=== PATIENT | male | born 1975 | race Caucasian/White ===

== ENCOUNTER 2024-07-09 15:32 | Emergency (ER) | payer BC, SELFPAY ==
[2024-07-09] VITALS (24 sets, daily range): BP systolic 126–163; BP diastolic 91–127; PULSE 53–96; RESP 16; TEMP 37; O2SAT 95–98; BMI 34.0
--- OUTSIDE RECORDS SUMMARY | 2024-07-09 15:34 | XMS_ITS | Clinical Summary ---
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 Name Role Phone Pcp, No Primary Care Provider Unavailabl e Allergies No known active allergies Medications polyethylene glycol-electroly te (GOLYTELY) 236-22.74-6.74 -5.86 gram suspensionIndica tions:Encounter for screening colonoscopy Drink 2 liters the day before the procedure and 2 liters 6 hours prior to procedure 4000 mL 3 Active CPAPIndications: LAVERNE (obstructive sleep apnea) CPAP machine for home use at pressure 5-16 cmw, full face mask x1/3month with a full face cushion x1/mo 1 Each 11 4 Active Active Problems Problem Noted Date Diagnosed Date Colon polyp 03/13/2023 Overview (03/13/2023): Colonoscopy 02/2023 2-TA, repeat in 7 years Obesity (BMI 35.0-39.9 without comorbidity) 09/2022 LAVERNE 05/22/2010 AHI-33, positional 05/27/2010 Myopia 06/19/2006 Resolved Problems Problem Noted Date Diagnosed Date Resolved Date Obesity, Class II, BMI 35-39 .9, with comorbidity 04/18/2014 05/16/2022 Immunizations Immunization Administration Dates Next Due Tdap 03/28/2022,09/09/2011 Family History Medical History Relation Name Comments Rheum arthritis Brother Cancer Father Small cell lung carcinoma Diabetes Father Stroke Maternal Uncle Diabetes Mother Heart Disease Mother Hypertension Mother Cancer-colon Paternal Grandfather Rheum arthritis Sister Relation Name Status Comments Brother Father Maternal Uncle Mother Paternal Grandfather Sister Social History Tobacco Use Types Packs/Day Years Used Date Smoking Tobacco: Former Smokeless Tobacco: Former Chew Quit: 11/10/2016 Tobacco Cessation:Counseling Given: Not Answered Comments:Quit using all tobacco products 5 years ago Alcohol Use Standard Drinks/Week Comments Never 0 (1 standard drink = 0.6 oz pur e alcohol) PHQ-2 Answer Date Recorded PHQ-2 TOTAL SCORE 0 03/28/2022 Social Connections Answer Date Recorded Frequency of Communication with Friends and Fami ly Not on file 04/03/2023 Financial Resource Strain Answer Date R ecorded Difficulty of Paying Living Expenses 3 03/28/2022 Difficulty of Paying Living Expenses Not on file 03/28/2022 Food Insecurity Answer Date Recorded Worried About Running Out of Food in the Last Ye ar 1 03/28/2022 Transportation Needs Answer Date Record ed Lack of Transportation (Medical) 1 03/28/2022 Housing Stability Answer Date Recorded Unable to Pay for Housing in the Last Year 1 03/28/2022 Sex and Gender Information Value Date Recorded Sex Assigned at Not on file Legal Sex Male 5:16 AM ADOPTION COUNSELOR Gender Identity Not on file Sexual Orientation Not on file Obstetrics History Last Filed Vital Signs Vital Sign Reading Time Taken Comments Blood Pressure 128/83 08/20/2023 3:03 PM CDT Pulse 71 08/20/2023 3:03 PM CDT Temperature 36.7 C (98.1 F) 09/15/2020 5:34 PM CDT Respiratory Rate 16 02/28/2023 12:33 PM ADOPTION COUNSELOR Oxygen Saturation 94% 08/20/2023 3:03 PM CDT Inhaled Oxygen Concentration - - Weight 109.8 kg (242 lb) 08/20/2023 3:03 PM CDT Height 174.5 cm (5' 8.7) 08/20/2023 3:03 PM CDT Body Mass Index 36.05 08/20/2023 3:03 PM CDT Plan of Treatment Health Maintenance Due Date Last Done Comments Depression screening for age 12+ 03/28/2023 03/28/2022, 07/25/2016, 06/09/2016 COVID-19 vaccine series () 11/11/2023 BMI (ht and wt on same day) for age 18+ 08/19/2024 08/20/2023, 05/16/2022, 03/28/2022, Additional history exists Influenza Vaccine (Season Ended) 2024 Lipids for age 45-75 03/28/2027 03/28/2022 Colonoscopy through age 75 02/28/203002/28, 02/28/2023, 02/28/2023 Tetanus booster 03/28/2032 03/28/2022, 09/09/2011 HIV for age 15-65 Completed 03/28/2022 Hepatitis C screening for age 18-79 Completed 03/28/2022 Tdap Completed 03/28/2022, 09/09/2011 Pneumococcal series for age 6-49 Aged Out No longer eligible based on patient's age to complete this topic Procedures Procedure Name Priority Date/Time Associated Diagnosis Comments COLONOSCOPY SCREENING Routine 02/28/2023 10:28 AM ADOPTION COUNSELOR Screening for colon cancer LC HIV-1/O/2, 4TH GENERATION Routine 03/28/2022 5:16 PM ADOPTION COUNSELOR Encounter for screening for human immunodeficiency virus (HIV) LC HCV ANTIBODY RFX TO QUANT PCR Routine 03/28/2022 5:16 PM ADOPTION COUNSELOR Encounter for hepatitis C screening test for low risk patient LC LIPID PANEL Routine 03/28/2022 5:16 PM ADOPTION COUNSELOR Lipid screening from Last 3 Months or Most Recently Relevant to Health Maintenance Results * COLONOSCOPY (02/28/2023 11:19 AM ADOPTION COUNSELOR) 02/28/2023 11:1 9 AM ADOPTION COUNSELOR Narrative Transcriptions Nando Bellamy MD - 02/28/2023 12:20 PM CST Patient Name: Lee Perez Procedure Date: 02/28/2023 Gender: Male Date of : 1975 Admit Type: Outpatient Procedure: Colonoscopy Proceduralist: Nando Bellamy MD , Ayleen Yates, RN (Nurse), Yovana Armstrong (Nurse) Referring MD: Ana Kahn Indications/Pre-Op Diagnosis: Screening for colorectal malignant neoplasm, This is the patient's first colonoscopy Medications: Fentanyl 100 micrograms IV, Midazolam 4 mgIV Procedure Description: The patient had risks, benefits and alternatives explained to andgave informed consent. The patient had a stable cardiopulmonary status and judged an adequate candidate for conscious sedation. The endoscope [id number] was passed through the anus andadvanced to the cecum, identified by appendiceal orifice and ileocecal valve.The colonoscopy was performed without difficulty. The patient toleratedthe procedure well. The quality of the bowel preparation was good. The ileocecal valve, appendiceal orifice, and rectum were photographed. Complications: No immediate complications. Estimated Blood Loss & Specimen: Estimated blood loss: none. Specimen collected - Yes and sent to Laboratory Findings: The perianal and digital rectal examinations were normal. Two sessile polyps were found in the ascending colon. The polyps were3 mm in size. These polyps were removed with a cold snare. Resectionand retrieval were complete. Scattered small-mouthed diverticula were found in the sigmoidcolon. The exam was otherwise without abnormality on direct and retroflexion views. Impressions/Post-Op Diagnosis: - Two 3 mm polyps in the ascending colon, removed with a cold snare. Resected and retrieved. - Diverticulosis in the sigmoid colon. - The examination was otherwise normal on direct and retroflexionviews. Recommendation: - Patient has a contact number available for emergencies. The signsand symptoms of potential delayed complications were discussed with the patient. Return to normal activities tomorrow. Written discharge instructions were provided to the patient. - Resume previous diet. - Continue present medications. - Await pathology results. - Repeat colonoscopy is recommended. The colonoscopy date will be determined after pathology results from today's exam become available for review. Moderate Sedation: A time out was performed before the procedure. Moderate (conscious) sedation was administered by the endoscopy nurse and supervised bythe endoscopist. The following parameters were monitored: oxygensaturation, heart rate, blood pressure, EKG, CO2, respiratory rate, adequacy of pulmonary ventilation and reponse to care. Please refer to the patient's medical record flowsheets and nursing notes for moderate sedation details. Total physician intraservice time was 15 minutes. Nando Bellamy MD 02/28/2023 12:20:18 PM This report has been signed electronically. Note Initiated On: 02/28/2023 11:19 AM Procedure Code(s): --- Professional --- 69970, Colonoscopy, flexible; with removalof tumor(s), polyp(s), or other lesion(s) bysnare technique Diagnosis Code(s): --- Professional --- Z12.11, Encounter for screening formalignant neoplasm of colon D12.2, Benign neoplasm of ascending colon K57.30, Diverticulosis of large intestine without perforation or abscess withoutbleeding CPT copyright 2021 [employer]. All rights reserved. The codes documented in this report are preliminary and upon hospital coder reviewmay be revised to meet current compliance requirements. Scope In: 12:01:39 PM Scope Withdrawal Time 0 hours 10 minutes 35 seconds Scope Out: 12:14:21 PM us Nando Bellamy MD PROCEDURE ORD Final Res ult * (ABNORMAL) LC LIPID PANEL (03/28/2022 5:16 PM ADOPTION COUNSELOR) Cholesterol, Total 194 100 - 199 mg/dL 03/31/2022 11:06 PM ADOPTION COUNSELOR [facility] Triglycerides 110 0 - 149 mg/dL 03/31/2022 11:06 PM ADOPTION COUNSELOR [facility] HDL Cholesterol 56 >39 mg/dL 11:06 PM [facility]SEL[facility] VLDL Cholesterol Stephon 20 5 - 40 mg/dL 03/31/2022 11:06 PM ADOPTION COUNSELOR [facility] LDL Chol Calc ([facility]) 118(H) 0 - 99 mg/dL 03/31/2022 11:06 PM ADOPTION COUNSELOR [facility] Blood BLOOD SPECIMEN / Unknown Venipuncture / Unknown 03/28/2022 5:16 PM ADOPTION COUNSELOR 03/28/2022 5:16 PM ADOPTION COUNSELOR Narrative [facility] - 03/31/2022 11:06 PM ADOPTION COUNSELOR Performed at: [address] [place] [id number] Auto Locator: Grupo Montejo MD, Phone: [phone] Ana [facility] Final Res ult Performing Organization Address [facility] Co de Phone Number [facility] [address] [place] [id number], * LC HCV ANTIBODY RFX TO QUANT PCR (03/28/2022 5:16 PM ADOPTION COUNSELOR) HCV Ab <0.1 0.0 - 0.9 s/co ratio 03/31/2022 3:09 PM ADOPTION COUNSELOR [facility] ([facility]) Blood BLOOD SPECIMEN / Unknown Venipuncture / Unknown 03/28/2022 5:16 PM ADOPTION COUNSELOR 03/28/2022 5:16 PM ADOPTION COUNSELOR Narrative [facility] ([facility] - 03/31/2022 3:09 PM ADOPTION COUNSELOR Performed at: [address] [place] [id number] Auto Locator: Grupo Montejo MD, Phone: [phone] us Ana [facility] Final Res ult Performing Organization Address [facility] Co de Phone Number [facility] [address] [place] [address], * LC HIV-1/O/2, 4TH GENERATION (03/28/2022 5:16 PM ADOPTION COUNSELOR) HIV Scr 4th Gen Non Reactive Non Reactive 03/31/2022 9:06 PM [facility]ION COUNSELOR [facility] Comment: HIV Negative HIV-1/HIV-2 antibodies and HIV-1 p24 antigen were NOT detected. There is no laboratory evidence of HIV infection. Blood BLOOD SPECIMEN / Unknown Venipuncture / Unknown 03/28/2022 5:16 PM ADOPTION COUNSELOR 03/28/2022 5:16 PM ADOPTION COUNSELOR Narrative [facility] - 03/31/2022 9:06 PM ADOPTION COUNSELOR Performed at: [address] [place] [address] [id number] Auto Locator: Grupo Montejo MD, Phone: [phone] us Ana [facility] Final Res ult [facility] ([facility]) [address] [place] [address], from Last 3 Months or Most Recently Relevant to Health Maintenance Insurance [employer] Care Teams Paper Cup Handle Machine Operator Relationship Specialty Start Date End Date Pcp, No . PCP - General 02/28/23
--- NOTE | 2024-07-09 16:26 | CRLHL7_ITS ---
For Patients: As a result of the Cures Act, medical imaging exams and procedure reports are released immediately into your electronic medical record. You may view this report before your referring provider. If you have questions, please contact your health care provider. INDICATION: Shoulder pain COMPARISON: None. TECHNIQUE: Three radiographic view(s) of the left shoulder. FINDINGS: No evident acute displaced fracture. 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 Minimal degenerative change of the glenohumeral joint. Normal alignment. The subacromial space is preserved. IMPRESSION: 1. No evident acute displaced fracture. 2. 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 Dictated by Abbe Hall MD @ 07/09/2024 5:37:37 PM (Electronically Signed)
--- NOTE | 2024-07-09 16:26 | CRLHL7_ITS ---
For Patients: As a result of the Century Cures Act, medical imaging exams and procedure reports are released immediately into your electronic medical record. You may view this report before your referring provider. If you have questions, please contact your health care provider. INDICATION: Chest and shoulder pain TECHNIQUE: Two view chest. FINDINGS: The lungs are clear. The heart, mediastinum and pulmonary vessels are of normal size. There is no evidence of pleural disease. IMPRESSION: Negative chest. Dictated by Gaviota Michael MD @ 07/09/2024 5:34:00 PM (Electronically Signed)
[2024-07-09 16:36] LABS: Basophils Percent Auto 0.4 % (0.0-3.0); Eosinophils Percent Auto 1.1 % (0.0-7.0); Hematocrit 46.3 % (37.0-53.0); Immature Granulocytes Pct Auto 1.2 %; Lymphocytes Percent Auto 13.5 % (20-44); Mean Corpuscular HGB Conc 35 gm/dL (32-36); Mean Corpuscular Hemoglobin 30 pg (26-34); Mean Corpuscular Volume 88 fL (80-100); Monocytes Percent Auto 8.3 % (0.0-11.0); Neutrophils Percent Auto 75.5 % (42.0-72.0); Platelet Count* 271 K/uL (140-440); RDW Coefficient of Variation % 11.8 % (11.5-15.5); Red Blood Count 5.27 m/uL (4.30-5.90); White Blood Count* 14.76 K/uL (4.50-11.00)
[2024-07-09] MEDS: KETOROLAC 15 MG/ML inj IVP (16:37)
[2024-07-09 16:39] LABS: Slide Review Reflex No
[2024-07-09 16:45] LABS: Chloride* 104 mmol/L (96-114)
[2024-07-09 16:46] LABS: Potassium* 3.9 mmol/L (3.6-5.1); Sodium* 138 mmol/L (135-149)
[2024-07-09 16:48] LABS: Blood Urea Nitrogen* 21 mg/dL (5-24); Est. Creatinine Clearance* 96.22; Estimated Glomerular Filt Rate 93 ml/min
[2024-07-09 16:49] LABS: Anion Gap 12 mEq/L (7-15); Calcium* 9.6 mg/dL (8.4-10.6); Carbon Dioxide* 22 mmol/L (20-32); Glucose* 114 mg/dL (60-115)
--- NOTE | 2024-07-09 17:49 | ED_ITS ---
HPI - General Adult General Chief complaint: Chest Pain Stated complaint: Left Shoulder Pain Time Seen by Provider: 07/09/24 15:51 History of Present Illness HPI narrative: 48 yo M presenting to the ER today with concern for atraumatic left shoulder pain. He actually had told the triage nurse that he was having chest pain but the pain is more really from his left shoulder. He reports that he does not have any history of left shoulder pain but has had some right shoulder pain in the past. He normally sleeps on his left side. He was sleeping on a couch yesterday afternoon after he woke up from his nap he was having bad pain in the left shoulder that radiates from there toward the left pack and the left upper chest. The pain has been present ever since yesterday. It hurts when he tries to move his shoulder. He does not have pain radiating down his left arm. No associated neck pain. No numbness in his arm. No swelling. He has not noticed any bruising, redness or skin discoloration of his shoulder or arm. He is not short of breath. No abdominal pain or flank pain or back pain. He does report a distant history of meth use (years ago). No history of coronary disease. Related Data Home Medications ?Medication ?Instructions ?Recorded ?Confirmed No Known Home Medications 07/09/24 07/09/24 Allergies Allergy/AdvReac Type Severity Reaction Status Date / Time No Known Drug Allergies Allergy Verified 09/18/22 15:54 Exam Narrative: Exam Narrative: Constitutional: Appears well-developed and well-nourished. Alert. He is seems little bit anxious and almost hyperverbal and over animated. The very polite. Conversant. Non toxic. HENT: Head: Atraumatic. Nose: Nose normal. Mouth/Throat: Oral mucosa is clear and moist. no trismus. Pharynx normal. Tonsils symmetric. No tonsillar enlargement, erythema, or exudate. Eyes: Conjunctivae normal. EOM normal. Pupils equal, round, and reactive to light. No scleral icterus. Neck: Normal range of motion. Neck supple. No tracheal deviation present. No posterior midline tenderness or step-off. Normal range of motion. Cardiovascular: Normal rate, regular rhythm. No gallop. No friction rub. No murmur heard. Symmetric radial and posterior tibial artery pulses Pulmonary/Chest: Effort normal. No stridor. No respiratory distress. No wheezes. No rales. No rhonchi . No tenderness. Abdominal: Soft. Bowel sounds normal. No distension. No mass. No tenderness. No rebound. No guarding. Musculoskeletal: RUE: Normal range of motion. No tenderness. No deformity LUE: He has lot of pain and fairly diffuse tenderness on the left shoulder without any point tenderness. No redness. No warmth. Range of motion the shoulder is limited by pain. He is able to flex about tender 20? forward and abduct about tender 20? laterally. He seems to have pretty good internal and external rotation. Humeral shaft, biceps, triceps are nontender. Elbow has normal flexion and extension and is nontender. Form has normal pronation/supination is nontender. Hand and wrist are nontender. Strong radial pulse. RLE: Normal range of motion. No edema. No tenderness. No deformity LLE: Normal range of motion. No edema. No tenderness. No deformity Lymph: No cervical adenopathy. Neurological: Alert and oriented to person, place, and time. Normal strength. CN II-VII intact. No sensory deficit. GCS eye subscore is 4. GCS verbal subscore is 5. GCS motor subscore is 6. Normal coordination . Bilaterally Intact axillary, median, radial, ulnar sensory function. Skin: Skin is warm and dry. No rash noted. No pallor. Normal capillary refill. Psychiatric: Normal mood. Seems a little bit over animated but very polite. Const: Vital Signs, click to edit/add: Vital Signs - 24 hr 07/09/24 15:42 07/09/24 16:05 07/09/24 16:06 Temperature 98.6 F Pulse Rate 62 53 L Pulse Rate [Pulse Oximeter] 79 Respiratory Rate 16 Blood Pressure 136/97 H Blood Pressure [Ri ght Upper Arm] 162/127 H Pulse Oximetry 95 97 97 Oxygen Delivery Me thod Room Air 07/09/24 16:15 07/09/24 16:22 07/09/24 16:22 Temperature Pulse Rate 70 71 71 Pulse Rate [Pulse Oximeter] Respiratory Rate Blood Pressure 154/103 H 154/103 H Blood Pressure [Ri ght Upper Arm] Pulse Oximetry 97 95 95 Oxygen Delivery Me thod 07/09/24 16:23 07/09/24 16:42 07/09/24 16:43 Temperature Pulse Rate 70 65 Pulse Rate [Pulse Oximeter] Respiratory Rate Blood Pressure 159/107 H Blood Pressure [Ri ght Upper Arm] Pulse Oximetry 97 97 Oxygen Delivery Me thod 07/09/24 16:45 07/09/24 17:03 07/09/24 17:04 Temperature Pulse Rate 60 68 59 L Pulse Rate [Pulse Oximeter] Respiratory Rate Blood Pressure 126/91 H Blood Pressure [Ri ght Upper Arm] Pulse Oximetry 97 95 96 Oxygen Delivery Me thod 07/09/24 17:15 07/09/24 17:22 07/09/24 17:30 Temperature Pulse Rate 68 96 78 Pulse Rate [Pulse Oximeter] Respiratory Rate Blood Pressure 146/96 H Blood Pressure [Ri ght Upper Arm] Pulse Oximetry 97 97 96 Oxygen Delivery Me thod 07/09/24 17:42 07/09/24 17:45 07/09/24 18:00 Temperature Pulse Rate 86 80 70 Pulse Rate [Pulse Oximeter] Respiratory Rate Blood Pressure 163/106 H Blood Pressure [Ri ght Upper Arm] Pulse Oximetry 97 97 97 Oxygen Delivery Me thod 07/09/24 18:02 07/09/24 18:15 07/09/24 18:22 Temperature Pulse Rate 92 82 83 Pulse Rate [Pulse Oximeter] Respiratory Rate Blood Pressure 149/92 H 138/103 H Blood Pressure [Ri ght Upper Arm] Pulse Oximetry 97 97 97 Oxygen Delivery Me thod 07/09/24 18:30 07/09/24 18:41 07/09/24 18:45 Temperature Pulse Rate 85 82 77 Pulse Rate [Pulse Oximeter] Respiratory Rate Blood Pressure 148/95 H Blood Pressure [Ri ght Upper Arm] Pulse Oximetry 98 97 95 Oxygen Delivery Me thod 07/09/24 19:02 Temperature Pulse Rate Pulse Rate [Pulse Oximeter] Respiratory Rate Blood Pressure 144/93 H Blood Pressure [Ri ght Upper Arm] Pulse Oximetry Oxygen Delivery Me thod Course Course ED Course: Recheck-feeling much better after Toradol. He is able to the range his left shoulder and lift his elbow up above his head. Seems to have full flexion and abduction. With nearly normal active range of motion at this point, likelihood of a septic arthritis is very low. Vital Signs Vital signs: Initial Vital Signs Temperature 98.6 F 07/09/24 15:42 Temperature Source Temporal Artery Scan 04/30/25 15:42 Pulse Rate 79 07/09/24 15:42 Respiratory Rate 16 07/09/24 15:42 Blood Pressure 162/127 H 07/09/24 15:42 Blood Pressure Mean 138 H 07/09/24 15:42 Blood Pressure Position Sitting 07/09/24 15:42 Pulse Oximetry 95 07/09/24 15:42 Oxygen Delivery Method Room Air 07/09/24 15:42 Vital Signs Temperature 98.6 F 07/09/24 15:42 Pulse Rate 79 07/09/24 15:42 Respiratory Rate 16 07/09/24 15:42 Blood Pressure 162/127 H 07/09/24 15:42 Pulse Oximetry 95 07/09/24 15:42 Oxygen Delivery Method Room Air 07/09/24 15:42 Temperature 98.6 F 07/09/24 15:42 Pulse Rate 77 07/09/24 18:45 Respiratory Rate 16 07/09/24 15:42 Blood Pressure 144/93 H 07/09/24 19:02 Pulse Oximetry 95 07/09/24 18:45 Oxygen Delivery Method Room Air 07/09/24 15:42 Medications Administered Medications: Discontinued Medications Generic Name Dose Route Start Last Admin Trade Name Freq PRN Reason Stop Dose Admin Ketorolac Tromethamine 15 mg 07/09/24 16:26 07/09/24 16:37 Ketorolac 15 Mg/Ml Inj IVP 07/09/24 16:27 15 mg ONCE ONE Administration Medical Decision Making MDM Narrative Medical decision making narrative: This patient presents to the ER today for evaluation of atraumatic pain in his left shoulder that started yesterday afternoon after he woke up from a nap on the couch. Differential was broad. No evidence of palpitations, syncope or other cardiac dysrhythmia. He is not really having any central chest pain but with left shoulder pain, we considered possible ACS, however workup with EKG and troponin is negative. HEART score is 1. Given time since onset of symptoms, I do not think the patient needs to be admitted for further sets of enzymes. EKG shows no evidence for pericarditis. Clinical presentation not suggestive of myocarditis. Chest x-ray shows no evidence for pneumonia, pneumothorax, pulmonary edema, pleural effusion, rib fracture, cardiomegaly. Mediastinum is normal on the x-ray. The patient has no ripping or tearing pain through to the back and has symmetric pulses on exam, no other acute neuro findings so I doubt aortic dissection. Risk of radiation and contrast exposure would outweigh the benefit of CT angiogram. We considered PE for this patient. He is low risk by my clinical gestalt is negative by PERC so therefore we will hold off on D-dimer or CT PA No wheezing or bronchospasm to suggest COPD/asthma. No signs of, shingles, injury. No associated neck pain to suggest a cervical radiculopathy. His pain primarily is in the left shoulder joint where he has tenderness and limited range of motion. There is no redness or warmth to the shoulder and no obvious swelling. No history of trauma but he does say he always sleeps on the left side. 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 He is not febrile but consider other causes of acute monoarthritis such as gouty arthritis or septic arthritis. Laboratory workup does show white count of 14. Initially he is having a lot of shoulder pain and very limited range of motion but after Toradol is actually actively ranging his shoulder very nicely. I am not able to attempt shoulder arthrocentesis here in the ER. Discussed with orthopedic on-call, WADE Verdugo. at this point I think it is safe for the patient to discharge home from the ER tonight but will recommend close outpatient follow-up with the orthopedic clinic for re-evaluation. It is possible that shoulder pain could be related to the AC joint arthritis. However if he has worsening pain, fever, new swelling or redness of her shoulder, or any concerns he should follow up with Ortho immediately or come back to the ER right away. With reasonable clinical confidence, I think the patient is safe for outpatient follow up. Discussed return precautions. Questions answered. Patient voices comfort with the plan. Lab Data Labs: Lab Results 07/09/24 Range/Units 16:00 WBC 14.76 H (4.50-11.00) K/uL RBC 5.27 (4.30-5.90) m/uL Hgb 16.0 (13.5-17.5) gm/dL Hct 46.3 (37.0-53.0) % MCV 88 (80-100) fL MCH 30 (26-34) pg MCHC 35 (32-36) gm/dL RDW Coeff of Tash 11.8 (11.5-15.5) % Plt Count 271 (140-440) K/uL Neut % (Auto) 75.5 H (42.0-72.0) % Lymph % (Auto) 13.5 L (20-44) % [place] % (Auto) 8.3 (0.0-11.0) % Eos % (Auto) 1.1 (0.0-7.0) % Baso % (Auto) 0.4 (0.0-3.0) % Neut # (Auto) 11.10 H (1.7-7.0) K/uL Lymph # (Auto) 2.00 (0.90-2.90) K/uL [place] # (Auto) 1.20 H (0.00-0.90) K/UL Eos # (Auto) 0.20 (0.00-0.50) K/uL Baso # (Auto) 0.10 (0.00-0.30) K/uL Abs Immat Gran (auto) 0.20 (0.00-0.30) K/uL Imm/Tot Granulo (auto) 1.2 % Sodium 138 (135-149) mmol/L Potassium 3.9 (3.6-5.1) mmol/L Chloride 104 (96-114) mmol/L Carbon Dioxide 22 (20-32) mmol/L Anion Gap 12 (7-15) mEq/L BUN 21 (5-24) mg/dL Creatinine 1.0 (0.5-1.5) mg/dL Estimated Creat Clear 96.22 Estimated GFR 93 ml/min Glucose 114 (60-115) mg/dL Calcium 9.6 (8.4-10.6) mg/dL POC Troponin I 0.00 L (0.01-0.04) ng/ml Imaging Data Chest x-ray: Attestation: I have reviewed the pertinent imaging results. Radiologist's impression: IMPRESSION: Negative chest. XR left shoulder: Attestation: I have reviewed the pertinent imaging results. Radiologist's impression: IMPRESSION: 1. No evident acute displaced fracture. 2. 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 Discharge Plan Discharge Clinical Impression: Acute pain of left shoulder Patient Disposition: Home, Self-Care Condition: Stable Instructions: Shoulder Pain (ED) Additional Instructions: As we discussed, the cause for her shoulder pain is not clear at this time. It could be due to arthritis but it is very important for you to recheck with the orthopedic clinic. Call the [facility] tomorrow morning to arrange an ER follow-up visit. Call [phone]. If you have worsening symptoms overnight such as worsening pain or any new fever or redness or swelling of your shoulder, please return to the emergency department right away. Use [id number] pain medication as needed. Use the prescription pain killer, [place], if needed for pain uncontrolled by the other medications be careful, because [place] can cause dizziness, drowsiness, constipation, and can be addictive. Prescriptions: No Action No Known Home Medications Follow Up/Referrals: Everett Montelongo MD [Primary Care Provider] - Stand Alone Forms: [employer] Info Instructions
--- OUTSIDE RECORDS SUMMARY | 2024-07-09 17:52 | XMS_ITS | Clinical Summary ---
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 [employer] Gender Identity Not on file Sexual Orientation Not on file Obstetrics History Last Filed Vital Signs Vital Sign Reading Time Taken Comments Blood Pressure 128/83 08/20/2023 3:03 PM CDT Pulse 71 08/20/2023 3:03 PM CDT Temperature 36.7 C (98.1 F) 09/15/2020 5:34 PM CDT Respiratory Rate 16 02/28/2023 12:33 PM PSYCHOLOG[employer] Oxygen Saturation 94% 08/20/2023 3:03 PM CDT [...] Comments COLONOSCOPY SCREENING Routine 02/28/2023 10:28 AM PSYCHOLOGIST [employer] Screening for colon cancer LC HIV-1/O/2, 4TH GENERATION Routine 03/28/2022 5:16 PM PSYCHOLOG[employer] Encounter for screening for human immunodeficiency virus (HIV) LC HCV ANTIBODY RFX TO QUANT PCR Routine 03/28/2022 5:16 PM PSYCHOLOGIST [employer] Encounter for hepatitis C screening test for low risk patient LC LIPID PANEL Routine 03/28/2022 5:16 PM PSYCHOLOGIST [employer] Lipid screening from Last 3 Months or Most Recently Relevant to Health Maintenance Results * COLONOSCOPY (02/28/2023 11:19 AM PSYCHOLOGIST [employer]) 02/28/2023 11:1 9 AM PSYCHOLOGIST [employer] Narrative Transcriptions Nando Bellamy MD - 02/28/2023 [...] adequate candidate for conscious sedation. The endoscope [id number] was passed through the anus andadvanced to [...] 11:19 AM Procedure Code(s): --- Professional --- 29001, Colonoscopy, flexible; with removalof tumor(s), polyp(s), or other lesion(s) bysnare technique Diagnosis Code(s): --- Professional --- Z12.11, Encounter for screening formalignant neoplasm of colon D12.2, Benign neoplasm of ascending colon K57.30, Diverticulosis of large intestine without perforation or abscess withoutbleeding CPT copyright 2021 [employer]. All rights reserved. The codes documented in this report are preliminary and upon information resources manager reviewmay be revised to meet current compliance requirements. Scope In: 12:01:39 PM Scope Withdrawal Time 0 hours 10 minutes 35 seconds Scope Out: 12:14:21 PM us Nando Bellamy MD PROCEDURE ORD Final Res ult * (ABNORMAL) LC LIPID PANEL (03/28/2022 5:16 PM PSYCHOLOGIST [employer]) Cholesterol, Total 194 100 - 199 mg/dL 03/31/2022 11:06 PM PSYCHOLOG[facility] [employer] [facility] Triglycerides 110 0 - 149 mg/dL 03/31/2022 11:06 PM PSYCHOLOGIST [employer]ICE [facility] HDL Cholesterol 56 >39 mg/dL 11:06 PM [facility] VLDL Cholesterol Stephon 20 5 - 40 mg/dL 03/31/2022 11:06 PM PSYCHOLOGIST [employer]ACTICE [facility] ([facility] LDL Chol Calc ([facility]) 118(H) 0 - 99 mg/dL 03/31/2022 11:06 PM PSYCHOLOGIST [employer]ACTICE [facility] Blood BLOOD SPECIMEN / Unknown Venipuncture / Unknown 03/28/2022 5:16 PM PSYCHOLOGIST [employer] 03/28/2022 5:16 PM PSYCHOLOGIST [employer] Narrative [facility] - 03/31/2022 11:06 PM PSYCHOLOGIST [employer] Performed at: [address] [place] [id number] Rotary Helper: Grupo Montejo MD, Phone: [phone] Ana [facility] Final Res ult Performing Organization Address [facility] Co de Phone Number [facility] [address] [place] [id number], * LC HCV ANTIBODY RFX TO QUANT PCR (03/28/2022 5:16 PM PSYCHOLOGIST [employer]ACT[facility]) HCV Ab <0.1 0.0 - 0.9 s/co ratio 03/31/2022 3:09 PM PSYCHOLOGIST [employer]ACTICE [facility] Blood BLOOD SPECIMEN / Unknown Venipuncture / Unknown 03/28/2022 5:16 PM PSYCHOLOGIST [employer] 03/28/2022 5:16 PM PSYCHOLOGIST [employer]ICE Narrative [facility] - 03/31/2022 3:09 PM PSYCHOLOGIST [employer] Performed at: [address] [place] [id number] Rotary Helper: Grupo Montejo MD, Phone: [phone] us [facility] Final Res ult Performing Organization Address City/[facility] Co de Phone Number [facility]) [address] [place] [address], * LC HIV-1/O/2, 4TH GENERATION (03/28/2022 5:16 PM PSYCHOLOGIST [employer]) HIV Scr 4th Gen Non Reactive Non Reactive 03/31/2022 9:06 PM [facility] Comment: HIV Negative HIV-1/HIV-2 antibodies and HIV-1 p24 antigen were NOT detected. There is no laboratory evidence of HIV infection. Blood BLOOD SPECIMEN / Unknown Venipuncture / Unknown 03/28/2022 5:16 PM PSYCHOLOGIST [employer] 03/28/2022 5:16 PM PSYCHOLOGIST [employer] PRACTICE Narrative [facility] ([facility] - 03/31/2022 9:06 PM PSYCHOLOGIST [employer] Performed at: [address] [place] [id number] Rotary Helper: Grupo Montejo MD, Phone: [phone] us [facility] Final Res ult [facility] ([facility]) [address] [place] [address], from Last 3 Months or Most Recently Relevant to Health Maintenance Insurance [employer] Care Teams Membership Advisor Relationship Specialty Start Date End Date Pcp, No . PCP - General 02/28/23
== END 2024-07-09 19:11 | disposition home or self-care (01) ==
PROVIDERS: Emergency Provider Emergency Medicine; PCP Internal Medicine
DX: M25.512 Pain in left shoulder (principal); R07.89 Other chest pain
CPT/HCPCS: 36415; 71046; 73030; 80048; 84145; 84484; 85025; 85651; 86140; 93005; 96374; 99283; 99284; 99285; J1885